=== PATIENT | female | born 1985 | race Caucasian/White ===

== ENCOUNTER 2017-10-27 09:58 | Emergency (ER) | payer OTHER ==
[~2017-10-27] VITALS: Ht 160 cm; Wt 90.7 kg
[~2017-10-27 09:58] MED LIST: ALBU90OI INH; Bactrim Ds Tab1 EACH PO; CIPR500 PO; Cleocin HCl150 MG PO; Cleocin HCl300 MG PO; DIPH50 PO; FERR325 PO; FEXPSEER; HYDACE5 PO; HYDR1TAB94 PO; IBUP800; IBUP800 PO; METPRE4DP PO; MINO100 PO; NEOPOLHCSU LEFTEAR; NITR100CA PO; Naprosyn500 MG PO; OXYACE5T PO; PENVK500 PO; PROM25 PO; Percocet 5-3251 EACH PO; Protonix40 MG PO; Proventil5 MG/1 ML INH; RXTRAM50 PO; SPACE CHAMBER1 EACH MC; Tylenol With C1 EACH PO; Veetids 500500 MG PO; Ventolin Soln3 ML INH; Verotin-Gr Cap1 EACH PO; Zofran Odt4 MG SL; Zofran8 MG PO; [UNRECOGNIZED DRUG - REMARK]; [UNRECOGNIZED DRUG - REMARK]
[2017-10-27] MEDS ORDERED: CEPH500 PO (10:48)
[2017-10-27] MEDS ORDERED: HYDR1TAB94 PO (10:48)
[2017-10-27] MEDS ORDERED: Bactrim Ds Tab1 EACH PO (10:48)
== END 2017-10-27 10:57 | disposition home or self-care (01) ==
LOC: ER 09:58
DX: L02.31 Cutaneous abscess of buttock (principal); Z87.891 Personal history of nicotine dependence
CPT/HCPCS: 10061; 99283

== ENCOUNTER 2018-05-11 18:02 | Emergency (ER) | payer OTHER ==
[~2018-05-11] VITALS: Ht 160 cm; Wt 88.0 kg
[~2018-05-11 18:02] MED LIST changes: +CEPH500 PO
[2018-05-11 18:54] LABS: BASOPHILS ABSOLUTE AUTO 0.07 K/mm3 (0.00-0.23); BASOPHILS PERCENT AUTO 1 % (0-2); EOSINOPHILS ABSOLUTE AUTO 0.48 K/mm3 (0.00-0.68); EOSINOPHILS PERCENT AUTO 3 % (0-6); Hematocrit 39.1 % (33.0-51.0); Hemoglobin 12.9 g/dL (11.5-16.0); IMMATURE GRAN ABSOLUTE AUTO 0.07 K/mm3 (0.00-0.10); IMMATURE GRAN PERCENT AUTO 1 % (0-1); LYMPHOCYTES ABSOLUTE AUTO 2.02 K/mm3 (0.84-5.20); LYMPHOCYTES PERCENT AUTO 13 % (21-46); MONOCYTES ABSOLUTE AUTO 0.53 K/mm3 (0.16-1.47); MONOCYTES PERCENT AUTO 4 % (4-13); Mean Corpuscular HGB 29.7 pg (26.0-34.0); Mean Corpuscular Volume 90 fL (80-100); Mean Platelet Volume 10.2 fL (9.1-12.4); NEUTROPHILS PERCENT AUTO 79 % (41-73); Platelet Count 253 K/mm3 (150-400); RDW Coefficient Variation 12.6 % (11.7-14.2); RDW Standard Deviation 41.4 fL (35.1-46.3); Red Blood Cell Count 4.35 M/mm3 (3.80-5.20); White Blood Cell Count 15.07 K/mm3 (4.00-11.30)
[2018-05-11 19:16] LABS: Alanine Aminotransfer (ALT/SGP 20 U/L (12-78); Albumin, Blood 3.6 g/dL (3.4-5.0); Albumin/Globulin Ratio 1.1 (0.8-1.8); Alk Phos 61 U/L (50-136); Anion Gap 8 mmol/L (6-16); Aspartate Aminotrans (AST/SGOT 8 U/L (12-37); Bilirubin, Total 0.2 mg/dL (0.1-1.0); Blood Urea Nitrogen 11 mg/dL (8-24); Bun/Creatinine Ratio 17.1 (12.0-20.0); CO2, Blood 25 mmol/L (21-32); Calcium, Blood 8.1 mg/dL (8.5-10.1); Chloride, Blood 107 mmol/L (98-108); Creatinine, Blood 0.64 mg/dL (0.40-1.00); Globulin, Blood 3.3 g/dL (2.2-4.0); Glomerular Filtration Rate >60 (60-); Glucose, Blood 111 mg/dL (70-99); Potassium, Blood 3.8 mmol/L (3.5-5.5); Sodium, Blood 140 mmol/L (136-145); Total Protein, Blood 6.9 g/dL (6.4-8.2)
[2018-05-11 20:13] LABS: Beta HCG, Quantitative, Serum 10264 mIU/mL (0-3)
[2018-05-11] MEDS ORDERED: ONDA4ODT MM (21:19)
== END 2018-05-11 21:31 | disposition home or self-care (01) ==
LOC: ER 18:02
PROVIDERS: Physician Assistant
DX: O03.9 Complete or unspecified spontaneous abortion without complication (principal)
CPT/HCPCS: 36415; 76801; 76817; 80053; 84702; 85025; 96361; 96374; 96375; 99284-25; J1885; J2405; J7030

== ENCOUNTER 2018-06-14 16:45 | Emergency (ER) | payer OTHER ==
[~2018-06-14] VITALS: Ht 152.4 cm; Wt 90.7 kg
[~2018-06-14 16:45] MED LIST changes: +ONDA4ODT MM
[2018-06-14] MEDS ORDERED: CEFD300 PO (17:16)
[2018-06-14] MEDS ORDERED: Sudogest60 MG PO (17:16)
[2018-06-14 17:30] LABS: Source, Urine Clean Catch
[2018-06-14 17:40] LABS: Appearance, Urine Clear (Clear); Bilirubin, Urine Neg (Neg); Blood, Urine 4+ (Neg); Color, Urine Yellow (P-Yellow); Glucose Qualitative, Urine Neg (Neg); Ketones, Urine Neg (Neg); Leukocyte Esterase, Urine 1+ (Neg); Nitrite, Urine Neg (Neg); Protein, Urine Neg (Neg); Urobilinogen, Urine NORM (Normal)
[2018-06-14 17:49] LABS: Bacteria Not Seen /hpf; Red Blood Cells, Urine 0-2 /hpf (0-2); Squamous Epithelial Cells Few /hpf (Few)
== END 2018-06-14 17:30 | disposition home or self-care (01) ==
LOC: ER 16:45
PROVIDERS: Physician Assistant
DX: N39.0 Urinary tract infection, site not specified (principal); H92.02 Otalgia, left ear; Z87.891 Personal history of nicotine dependence
CPT/HCPCS: 81001; 81025; 87086; 99283

== ENCOUNTER → 2018-06-19 | Outpatient (CLI) | payer OTHER ==
[~2018-06-19] MED LIST changes: +CEFD300 PO; +Sudogest60 MG PO
== END ==
LOC: LAB SHORT 10:56 → LAB 10:56
DX: H65.05 Acute serous otitis media, recurrent, left ear (principal)
CPT/HCPCS: 87070; 87077; 87186; 87205

== ENCOUNTER → 2018-12-09 | Outpatient (CLI) | payer OTHER ==
[2018-12-11 14:07] LABS: HPV 16 Negative (Negative); HPV 18 Negative (Negative); HPV OTHER HR TYPES Negative (Negative)
== END ==
LOC: LAB 18:34 → LAB SHORT 18:34
PROVIDERS: Registered Nurse Community Health
DX: Z01.419 Encounter for gynecological examination (general) (routine) without abnormal findings (principal)
CPT/HCPCS: 87624; G0123

== ENCOUNTER 2019-06-28 14:34 | Emergency (ER) | payer OTHER ==
[~2019-06-28] VITALS: Ht 160 cm; Wt 91.2 kg
[2019-06-28] MEDS ORDERED: Naprosyn500 MG PO (16:34)
== END 2019-06-28 16:45 | disposition home or self-care (01) ==
LOC: ER 14:34
DX: S93.601A Unspecified sprain of right foot, initial encounter (principal); M19.90 Unspecified osteoarthritis, unspecified site; J42 Unspecified chronic bronchitis; X50.9XXA Other and unspecified overexertion or strenuous movements or postures, initial encounter
CPT/HCPCS: 73630; 99283-25

== ENCOUNTER → 2019-08-05 | Outpatient (CLI) | payer OTHER | END | disposition home or self-care (01) | LOC: LAB SHORT 15:04 → LAB 15:04 | DX: R30.0 Dysuria (principal) | CPT/HCPCS: 87086 ==

== ENCOUNTER → 2020-02-07 | Outpatient (CLI) | payer OTHER | END | disposition home or self-care (01) | LOC: LAB EV 16:06 → LAB SHORT 16:06 | DX: O26.93 Pregnancy related conditions, unspecified, third trimester (principal); Z3A.36 36 weeks gestation of pregnancy | CPT/HCPCS: 87081; 87653 ==

== ENCOUNTER 2020-03-01 05:59 | Inpatient (IN) | payer OTHER ==
[~2020-03-01] VITALS: Ht 160 cm; Wt 111.8 kg
[2020-03-01] MEDS ORDERED: PRENATAL TABLE1 EAC2 PO (06:11)
[2020-03-01 06:16] LABS: BASOPHILS ABSOLUTE AUTO 0.07 K/mm3 (0.00-0.23); BASOPHILS PERCENT AUTO 1 % (0-2); EOSINOPHILS ABSOLUTE AUTO 0.23 K/mm3 (0.00-0.68); EOSINOPHILS PERCENT AUTO 2 % (0-6); Hematocrit 41.8 % (33.0-51.0); IMMATURE GRAN PERCENT AUTO 2 % (0-1); LYMPHOCYTES ABSOLUTE AUTO 2.22 K/mm3 (0.84-5.20); LYMPHOCYTES PERCENT AUTO 15 % (21-46); MONOCYTES ABSOLUTE AUTO 0.95 K/mm3 (0.16-1.47); MONOCYTES PERCENT AUTO 6 % (4-13); Mean Corpuscular HGB 29.9 pg (26.0-34.0); Mean Corpuscular HGB Conc 33.5 g/dL (31.5-36.5); Mean Corpuscular Volume 89 fL (80-100); Mean Platelet Volume 10.7 fL (9.1-12.4); NEUTROPHILS ABSOLUTE AUTO 11.12 K/mm3 (1.96-9.15); NEUTROPHILS PERCENT AUTO 75 % (41-73); Platelet Count 205 K/mm3 (150-400); RDW Coefficient Variation 13.5 % (11.7-14.2); RDW Standard Deviation 43.8 fL (35.1-46.3); Red Blood Cell Count 4.68 M/mm3 (3.80-5.20); White Blood Cell Count 14.89 K/mm3 (4.00-11.30)
--- NOTE | 2020-03-01 10:00 | NUR ---
DR SPRAGUE CONSULTED PT, DR SHANKAR HERE, PLAN TO GO A LITTLE EARLY
[2020-03-02 06:02] LABS: BASOPHILS ABSOLUTE AUTO 0.07 K/mm3 (0.00-0.23); BASOPHILS PERCENT AUTO 1 % (0-2); EOSINOPHILS ABSOLUTE AUTO 0.19 K/mm3 (0.00-0.68); EOSINOPHILS PERCENT AUTO 1 % (0-6); Hematocrit 35.9 % (33.0-51.0); Hemoglobin 11.9 g/dL (11.5-16.0); IMMATURE GRAN PERCENT AUTO 1 % (0-1); LYMPHOCYTES PERCENT AUTO 13 % (21-46); MONOCYTES ABSOLUTE AUTO 1.03 K/mm3 (0.16-1.47); MONOCYTES PERCENT AUTO 7 % (4-13); Mean Corpuscular HGB Conc 33.1 g/dL (31.5-36.5); Mean Corpuscular Volume 90 fL (80-100); Mean Platelet Volume 10.8 fL (9.1-12.4); NEUTROPHILS ABSOLUTE AUTO 11.77 K/mm3 (1.96-9.15); NEUTROPHILS PERCENT AUTO 78 % (41-73); Platelet Count 153 K/mm3 (150-400); RDW Coefficient Variation 13.5 % (11.7-14.2); RDW Standard Deviation 44.5 fL (35.1-46.3); Red Blood Cell Count 3.97 M/mm3 (3.80-5.20); White Blood Cell Count 15.16 K/mm3 (4.00-11.30)
--- NOTE | 2020-03-02 07:26 | NUR ---
PT HAS A PORTAL ACCOUNT
--- NOTE | 2020-03-02 10:50 | NUR ---
DISCHARGE INSTRUCTIONS, WRITTEN AND VERBAL, GIVEN TO PATIENT. ANSWERED ALL QUESTIONS AND CONCERNS. IV DISCONTINUED. PT REFUSED FLU AND TDAP VACCINES. PT REFUSED MOTRIN PRESCIPTION FROM PROVIDER DUE TO HER HAVING SOME AT HOME. FOLLOW UP APPOINTMENT TO BE SCHEDULED.
--- NOTE | 2020-03-02 13:11 | NUR ---
FOLLOW UP APPOINTMENT SCHEDULED. ALL PERSONAL BELONGINGS RETURNED. PT IS DISCHARGED HOME.
== END 2020-03-02 13:18 | disposition home or self-care (01) | DRG 807 ==
LOC: OBS 05:59 → BC 05:59 → OBS 06:03 → BC 06:04
PROVIDERS: ADMIT Obstetrics & Gynecology
PROC: 10E0XZZ Delivery of Products of Conception, External Approach (ICD-10-PCS; principal; 2020-03-01)
PROC: 00HU33Z Insertion of Infusion Device into Spinal Canal, Percutaneous Approach (ICD-10-PCS; 2020-03-01)
PROC: 3E0R3BZ Introduction of Anesthetic Agent into Spinal Canal, Percutaneous Approach (ICD-10-PCS; 2020-03-01)
DX: O69.81X0 Labor and delivery complicated by cord around neck, without compression, not applicable or unspecified (principal); Z37.0 Single live birth; O66.0 Obstructed labor due to shoulder dystocia; Z20.828 Contact with and (suspected) exposure to other viral communicable diseases; Z87.891 Personal history of nicotine dependence; Z3A.39 39 weeks gestation of pregnancy; O99.214 Obesity complicating childbirth; E66.9 Obesity, unspecified
CPT/HCPCS: 36415; 51702; 85025; 86850; 86900; 86901; A9270; J0290; J1885; J2001; J2210; J2590; J3010; J7120; U0004

== ENCOUNTER 2020-12-30 18:06 | Emergency (ER) | payer OTHER ==
[~2020-12-30] VITALS: Ht 160 cm; Wt 87.1 kg
[~2020-12-30 18:06] MED LIST changes: +PRENATAL TABLE1 EAC2 PO
== END 2020-12-30 19:15 | disposition home or self-care (01) ==
LOC: ER 18:06
DX: U07.1 COVID-19 (principal); Z87.891 Personal history of nicotine dependence
CPT/HCPCS: 87081; 87430; 99284; A9270

== ENCOUNTER → 2021-06-18 | Outpatient (CLI) | payer OTHER | END | disposition home or self-care (01) | LOC: LAB SHORT 17:20 | DX: Z34.83 Encounter for supervision of other normal pregnancy, third trimester (principal); Z3A.36 36 weeks gestation of pregnancy | CPT/HCPCS: 87081; 87150 ==

== ENCOUNTER 2021-06-22 06:55 | Inpatient (IN) | payer OTHER ==
[~2021-06-22] VITALS: Ht 160 cm; Wt 105.0 kg
[2021-06-22 07:46] LABS: BASOPHILS ABSOLUTE AUTO 0.09 K/mm3 (0.00-0.23); BASOPHILS PERCENT AUTO 1 % (0-2); EOSINOPHILS ABSOLUTE AUTO 0.37 K/mm3 (0.00-0.68); EOSINOPHILS PERCENT AUTO 2 % (0-6); Hematocrit 42.1 % (33.0-51.0); Hemoglobin 14.2 g/dL (11.5-16.0); IMMATURE GRAN ABSOLUTE AUTO 0.27 K/mm3 (0.00-0.10); IMMATURE GRAN PERCENT AUTO 1 % (0-1); LYMPHOCYTES ABSOLUTE AUTO 2.17 K/mm3 (0.84-5.20); LYMPHOCYTES PERCENT AUTO 11 % (21-46); MONOCYTES PERCENT AUTO 5 % (4-13); Mean Corpuscular HGB 29.8 pg (26.0-34.0); Mean Corpuscular HGB Conc 33.7 g/dL (31.5-36.5); Mean Corpuscular Volume 88 fL (80-100); Mean Platelet Volume 10.5 fL (9.1-12.4); NEUTROPHILS ABSOLUTE AUTO 16.07 K/mm3 (1.96-9.15); NEUTROPHILS PERCENT AUTO 80 % (41-73); Platelet Count 221 K/mm3 (150-400); RDW Coefficient Variation 13.6 % (11.7-14.2); RDW Standard Deviation 44.2 fL (35.1-46.3); Red Blood Cell Count 4.77 M/mm3 (3.80-5.20); White Blood Cell Count 19.97 K/mm3 (4.00-11.30)
--- NOTE | 2021-06-22 09:13 | NUR ---
PT REMOVED BP CUFF, DECLINING VS AT THIS TIME STATING SHE JUST WANTS TO BE ABLE TO MOVE TO BREASTFEED AND SIT UP TO EAT
[2021-06-22 10:19] LABS: Influenza A, PCR NEGATIVE (NEGATIVE); Influenza B, PCR NEGATIVE (NEGATIVE); Resp Syncytial Virus, PCR NEGATIVE (NEGATIVE); SARS-Cov-2 (COVID-19) PCR, MMC NEGATIVE (NEGATIVE)
[2021-06-23 06:09] LABS: Hematocrit 36.8 % (33.0-51.0); Hemoglobin 11.9 g/dL (11.5-16.0); Mean Corpuscular HGB 29.8 pg (26.0-34.0); Mean Corpuscular HGB Conc 32.3 g/dL (31.5-36.5); Mean Corpuscular Volume 92 fL (80-100); Mean Platelet Volume 10.4 fL (9.1-12.4); Platelet Count 178 K/mm3 (150-400); RDW Coefficient Variation 13.7 % (11.7-14.2); RDW Standard Deviation 46.5 fL (35.1-46.3); White Blood Cell Count 15.13 K/mm3 (4.00-11.30)
== END 2021-06-23 09:55 | disposition home or self-care (01) | DRG 807 ==
LOC: OBS 06:55 → BC 06:56 → OBS 07:19 → BC 07:21
PROVIDERS: ADMIT Obstetrics & Gynecology
PROC: 10E0XZZ Delivery of Products of Conception, External Approach (ICD-10-PCS; principal; 2021-06-22)
PROC: 10907ZC Drainage of Amniotic Fluid, Therapeutic from Products of Conception, Via Natural or Artificial Opening (ICD-10-PCS; 2021-06-22)
DX: O60.13X0 Preterm labor second trimester with preterm delivery third trimester, not applicable or unspecified (principal); Z37.0 Single live birth; Z20.822 Contact with and (suspected) exposure to COVID-19; Z67.10 Type A blood, Rh positive; Z3A.36 36 weeks gestation of pregnancy
CPT/HCPCS: 0241U; 36415; 59025; 85025; 85027; 86850; 86900; 86901; A9270; J1885; J3010; J7120

== ENCOUNTER 2022-11-25 15:16 | Emergency (ER) | payer OTHER ==
[~2022-11-25] VITALS: Ht 157.5 cm; Wt 95.2 kg
[2022-11-25 15:30] VITALS: BP 115/92
[2022-11-25] MEDS ORDERED: CEPH500 PO (15:43)
[2022-11-25 15:46] LABS: Source, Urine Clean Catch
[2022-11-25 15:56] LABS: Appearance, Urine Clear (Clear); Bilirubin, Urine Neg (Neg); Blood, Urine Neg (Neg); Color, Urine Yellow (P-Yellow); Glucose Qualitative, Urine Neg (Neg); Ketones, Urine Neg (Neg); Leukocyte Esterase, Urine 1+ (Neg); Nitrite, Urine Neg (Neg); Protein, Urine Neg (Neg); Specific Gravity, Urine 1.015 (1.003-1.022); Urobilinogen, Urine NORM (Normal)
[2022-11-25 16:13] LABS: Bacteria Mod /hpf; Squamous Epithelial Cells Few /hpf (Few)
== END 2022-11-25 15:45 | disposition home or self-care (01) ==
LOC: ER 15:16
PROVIDERS: Physician Assistant
DX: N39.0 Urinary tract infection, site not specified (principal); Z87.891 Personal history of nicotine dependence; M19.90 Unspecified osteoarthritis, unspecified site
CPT/HCPCS: 81001; 81025

== ENCOUNTER → 2023-02-14 | Outpatient (CLI) | payer OTHER | END | disposition home or self-care (01) | LOC: LAB SHORT 16:40 → LAB 16:40 | PROVIDERS: Family Medicine Adult Medicine | DX: G62.9 Polyneuropathy, unspecified (principal) | CPT/HCPCS: 85651; 86038 ==

== ENCOUNTER → 2023-11-12 | Outpatient (CLI) | payer OTHER ==
[2023-11-12 17:30] LABS: U Amphetamine Screen Not Detected; U Barbituate Screen Not Detected; U Benzodiazapine Screen Not Detected; U Buprenorphine Screen Not Detected; U Cannabinoids Screen Not Detected; U Cocaine Screen Not Detected; U Methadone Screen Not Detected; U Methamphetamine Screen Not Detected; U Opiates Screen Not Detected; U Oxycodone Screen Not Detected; U Phencyclidine Screen Not Detected
[2023-11-16 14:38] LABS: 3-OH-COTININE, URN, QUANT <50 ng/mL; ANABASINE, URN, QUANT <5 ng/mL; COTININE, URN, QUANT <15 ng/mL; NICOTINE, URN, QUANT <15 ng/mL
== END | disposition home or self-care (01) ==
LOC: LAB SHORT 16:12 → LAB 16:12
PROVIDERS: Student in an Organized Health Care Education/Training Program
DX: E66.9 Obesity, unspecified (principal)
CPT/HCPCS: G0480

== ENCOUNTER 2024-03-04 21:31 | Emergency (ER) | payer OTHER ==
[~2024-03-04] VITALS: Ht 157.5 cm; Wt 100.7 kg
[2024-03-04 21:45] VITALS: BP 121/78
[2024-03-04] MEDS ORDERED: Ondansetron HCl 2 MG / ML 2ML Vial IV ONE (21:50)
[2024-03-04] MEDS ORDERED: NS 1,000 ML IV SCH (21:50)
[2024-03-04 22:12] LABS: BASOPHILS ABSOLUTE AUTO 0.04 K/mm3 (0.00-0.23); BASOPHILS PERCENT AUTO 0 % (0-2); EOSINOPHILS ABSOLUTE AUTO 0.18 K/mm3 (0.00-0.68); EOSINOPHILS PERCENT AUTO 1 % (0-6); Hematocrit 40.1 % (33.0-51.0); Hemoglobin 14.1 g/dL (11.5-16.0); IMMATURE GRAN ABSOLUTE AUTO 0.08 K/mm3 (0.00-0.10); IMMATURE GRAN PERCENT AUTO 1 % (0-1); LYMPHOCYTES ABSOLUTE AUTO 1.48 K/mm3 (0.84-5.20); LYMPHOCYTES PERCENT AUTO 9 % (21-46); MONOCYTES ABSOLUTE AUTO 0.87 K/mm3 (0.16-1.47); MONOCYTES PERCENT AUTO 6 % (4-13); Mean Corpuscular HGB 30.6 pg (26.0-34.0); Mean Corpuscular HGB Conc 35.2 g/dL (31.5-36.5); Mean Corpuscular Volume 87 fL (80-100); Mean Platelet Volume 9.9 fL (9.1-12.4); NEUTROPHILS ABSOLUTE AUTO 13.09 K/mm3 (1.96-9.15); NEUTROPHILS PERCENT AUTO 83 % (41-73); Platelet Count 340 K/mm3 (150-400); RDW Coefficient Variation 12.9 % (11.7-14.2); RDW Standard Deviation 40.5 fL (35.1-46.3); Red Blood Cell Count 4.61 M/mm3 (3.80-5.20); White Blood Cell Count 15.74 K/mm3 (4.00-11.30)
[2024-03-04 22:38] LABS: Albumin, Blood 3.3 g/dL (3.4-5.0); Albumin/Globulin Ratio 0.9 (0.8-1.8); Bilirubin, Total 0.8 mg/dL (0.1-1.0); Bun/Creatinine Ratio 18.2 (12.0-20.0); Calcium, Blood 8.4 mg/dL (8.5-10.1); Creatinine, Blood 0.6 mg/dL (0.40-1.00); Globulin, Blood 3.8 g/dL (2.2-4.0); Potassium, Blood 3.7 mmol/L (3.5-5.5); Total Protein, Blood 7.1 g/dL (6.4-8.2)
== END 2024-03-04 22:50 | disposition home or self-care (01) ==
LOC: ER 21:31
PROVIDERS: Physician Assistant
DX: R11.2 Nausea with vomiting, unspecified (principal); Z87.891 Personal history of nicotine dependence; Z79.899 Other long term (current) drug therapy
CPT/HCPCS: 80053; 85025; 96374; 99283-25; J2405; J7030

== ENCOUNTER 2024-04-04 19:54 | Emergency (ER) | payer OTHER ==
[~2024-04-04] VITALS: Ht 157.5 cm; Wt 86.6 kg
[2024-04-04 20:32] VITALS: BP 125/76
[2024-04-04] MEDS ORDERED: PANTOPRAZOLE SO40 M2 PO (21:00)
== END 2024-04-04 21:19 | disposition home or self-care (01) ==
LOC: ER 19:54
DX: J06.9 Acute upper respiratory infection, unspecified (principal); Z87.891 Personal history of nicotine dependence; Z79.899 Other long term (current) drug therapy
CPT/HCPCS: 99282

== ENCOUNTER 2024-06-17 06:54 | Day surgery (SDC) | payer OTHER ==
[~2024-06-17] VITALS: Ht 157.5 cm; Wt 79.8 kg
[~2024-06-17 06:54] MED LIST changes: +PANTOPRAZOLE SO40 M2 PO
[2024-06-17] MEDS ORDERED: Bupivacaine 0.5% W/EPI 1:200000 SDV 30 ML Vial ONE (07:01)
[2024-06-17] MEDS ORDERED: IMITREX50 M2 PO (07:37)
[2024-06-17] MEDS ORDERED: MULTI-VITAMIN1 EAC2 PO (07:37)
[2024-06-17] MEDS ORDERED: Lactated Ringer's 1,000 ML IV ONE ×3 (07:49→09:53)
[2024-06-17] MEDS ORDERED: propofoL 20 ML IV ONE (08:00)
[2024-06-17] MEDS ORDERED: FentaNYL Citrate 50 MCG/ML 2 ML Injection ONE ×2 (08:01→09:19)
[2024-06-17] MEDS ORDERED: Ondansetron HCl 2 MG / ML 2ML Vial ONE ×2 (08:15→09:24)
[2024-06-17] MEDS ORDERED: Dexamethasone Sod Phos 10 MG/ML 1ML VIAL ONE (08:15)
[2024-06-17] MEDS ORDERED: Rocuronium Bromide 10 MG/ML 5ML Injection IV ONE (08:15)
[2024-06-17] MEDS ORDERED: Ketorolac Tromethamine 30mg Vial ONE (08:15)
[2024-06-17] MEDS ORDERED: Sugammadex Sodium 200 MG/2ML SDV (100 MG/ML) ONE (08:16)
[2024-06-17] MEDS ORDERED: CeFAZolin Sodium 2,000 MG VIAL ONE (08:23)
[2024-06-17] MEDS ORDERED: CeFAZolin Sodium 1000 mg Vial ONE (08:25)
--- NOTE | 2024-06-17 09:19 | NUR ---
06/17/24 0919 Ewa Dejesus PT TO PACU, ASLEEP UPON ARRIVAL. ABD INCISION SITES CLEAN DRY AND INTACT. NO DRAINAGE ON PERIPAD.
--- NOTE | 2024-06-17 09:54 | NUR ---
06/17/24 0954 Ewa Dejesus PATIENT MOVED TO STEP DOWN. STATES NAUSEA HAS RESOLVED, BUT STILL RATING ABDOMINAL PAIN 7/10. WARM BLANKET APPLIED TO LOWER ABDOMEN.
[2024-06-17] MEDS ORDERED: HYDROmorphone HCl/Pf 1MG SYR ONE (09:59)
[2024-06-17 10:19] VITALS: BP 127/75
--- NOTE | 2024-06-17 10:31 | NUR ---
06/17/24 1031 Zoraida Lowry REMOVED AT END OF CASE WITHOUT ISSUES.
== END 2024-06-17 10:40 | disposition home or self-care (01) ==
LOC: ORSCSDS 06:54
PROVIDERS: Obstetrics & Gynecology
PROC: 0UB74ZZ Excision of Bilateral Fallopian Tubes, Percutaneous Endoscopic Approach (ICD-10-PCS; principal; 2024-06-17 08:30)
DX: Z30.2 Encounter for sterilization (principal); N80.329 Endometriosis of the posterior cul-de-sac, unspecified depth; N81.6 Rectocele; K21.9 Gastro-esophageal reflux disease without esophagitis; Z98.84 Bariatric surgery status; Z87.891 Personal history of nicotine dependence
CPT/HCPCS: 88302; J0690; J1100; J1171; J1885; J2405; J2704; J3010; J7120